=== PATIENT | female | born 1955 | race Caucasian/White ===

== ENCOUNTER 2017-06-24 03:24 | Inpatient (IN) | payer BC, OTHER ==
[2017-06-24] MEDS ORDERED: NORMAL SALINE 1000 ML 1,000 ML IV ONE ×3 (03:26→06:27)
[2017-06-24 04:02] LABS: VENOUS BLOOD BASE EXCESS -4.1 mmol/L; VENOUS BLOOD HCO3 21.2 mmol/L (20-32); VENOUS BLOOD PCO2 39.8 mmHg (35-63); VENOUS BLOOD PH 7.35 (7.30-7.42)
[2017-06-24 04:05] LABS: ABSOLUTE BASOPHILS # (AUTO) 0.1 10^3/uL (0.0-0.2); ABSOLUTE EOSINOPHILS # (AUTO) 0.2 10^3/uL (0.0-0.6); ABSOLUTE LYMPHOCYTES (AUTO) 2.2 10^3/uL (0.5-4.7); ABSOLUTE MONOCYTES (AUTO) 0.4 10^3/uL (0.1-1.4); BASOPHILS % (AUTO) 1.3 % (0-2); EOSINOPHILS % (AUTO) 2.6 % (0-6); HEMATOCRIT 38.8 % (36.0-47.0); HEMOGLOBIN 12.8 g/dL (12.0-15.5); LYMPHOCYTES % (AUTO) 31.5 % (13-45); MEAN CORPUSCULAR HEMOGLOBIN 30.3 pg (27.0-33.4); MEAN CORPUSCULAR HGB CONC 32.9 g/dL (32.0-36.0); MEAN CORPUSCULAR VOLUME 92 fl (80-97); MONOCYTES % (AUTO) 6.2 % (3-13); PLATELET COUNT 209 10^3/uL (150-450); RED BLOOD COUNT 4.22 10^6/uL (3.72-5.28); RED CELL DISTRIBUTION WIDTH 14.5 % (11.5-14.0); SEGMENTED NEUTROPHILS % (AUTO) 58.4 % (42-78); TOTAL CELLS COUNTED % (AUTO) 100 %; WHITE BLOOD COUNT 6.9 10^3/uL (4.0-10.5)
[2017-06-24 04:14] LABS: ALANINE AMINOTRANSFERASE 21 U/L (9-52); ALBUMIN 3.9 g/dL (3.5-5.0); ALKALINE PHOSPHATASE 96 U/L (38-126); ANION GAP 12 (5-19); ASPARTATE AMINO TRANSFERASE 34 U/L (14-36); BILIRUBIN,DIRECT 0.2 mg/dL (0.0-0.4); BILIRUBIN,TOTAL 0.5 mg/dL (0.2-1.3); BLOOD UREA NITROGEN 20 mg/dL (7-20); CALCIUM 9.7 mg/dL (8.4-10.2); CARBON DIOXIDE 25 mmol/L (22-30); CHLORIDE 99 mmol/L (98-107); LIPASE 379.3 U/L (23-300); POTASSIUM 4.8 mmol/L (3.6-5.0); SODIUM 135.8 mmol/L (137-145); TOTAL PROTEIN 7.5 g/dL (6.3-8.2)
[2017-06-24 04:22] LABS: GLUCOSE 564 mg/dL (75-110)
[2017-06-24 04:44] LABS: APPEARANCE,URINE CLOUDY; BILIRUBIN,URINE NEGATIVE (NEGATIVE); COLOR,URINE YELLOW; GLUCOSE, URINE >=500 mg/dL (NEGATIVE); KETONES,URINE TRACE mg/dL (NEGATIVE); LEUKOCYTE ESTERASE,URINE MODERATE (NEGATIVE); NITRITE,URINE NEGATIVE (NEGATIVE); PROTEIN,URINE NEGATIVE (NEGATIVE); URINE SPECIFIC GRAVITY 1.035; UROBILINOGEN,URINE NEGATIVE mg/dL (<2.0)
[2017-06-24] MEDS ORDERED: INSULIN REG, HUMAN 100 UNIT/ML 3 ML VIAL (PYX) SUBCUT ONE (04:54)
[2017-06-24] MEDS ORDERED: CEFTRIAXONE 1 GM/D5W RTU 1 GM/50 ML RTUPB IV ONE (04:54)
[2017-06-24] MEDS ORDERED: CEFTRIAXONE INJ 1000 MG VIAL ONE (05:09)
[2017-06-24] MEDS ORDERED: HUM INSULIN NPH/REG INSULIN HM 100 UNIT/1 ML 3 ML SUBCUT ONE (06:21)
--- NOTE | 2017-06-24 06:33 | ER Document Report ---
ED General - General Chief Complaint: High Blood Sugar Stated Complaint: BLOOD SUGAR ISSUE Time Seen by Provider: 06/24/17 03:38 TRAVEL OUTSIDE OF THE [place] IN LAST 30 DAYS: No - HPI Patient complains to provider of: Elevated blood sugars altered mental state Notes: Rule outI told able to get up and stand her up more insulin he does patient coming in for elevated blood sugar Tylenol status found by family not to be slightly confused. Upon myEvaluation patient moving all 4 extremities was to be sleepy at this time. Patient states she has been out of her insulin for the last 2 days. Apparently patient is on a combination of insulin family thinks that the 7030 however did not have much she takes. Patient denies any trauma denies any pain at this time. Denies fevers chills nausea vomiting diarrhea. Patient moving all 4 extremities. - Related Data Allergies/Adverse Reactions: amoxicillin Allergy (Verified 06/24/17 05:21) Past Medical History - Social History Smoking Status: Never Smoker Family History: Reviewed & Not Pertinent Patient has suicidal ideation: No Patient has homicidal ideation: No Endocrine Medical History: Reports: Hx Diabetes Mellitus Type 2 Renal/ Medical History: Denies: Hx Peritoneal Dialysis Review of Systems - Review of Systems Constitutional: Other - Slight confusion EENT: No symptoms reported Cardiovascular: No symptoms reported Respiratory: No symptoms reported Gastrointestinal: No symptoms reported Genitourinary: No symptoms reported Female Genitourinary: No symptoms reported Musculoskeletal: No symptoms reported Skin: No symptoms reported Hematologic/Lymphatic: No symptoms reported Neurological/Psychological: Other - Elevated blood sugars -: Yes All other systems reviewed and negative Physical Exam - Vital signs Vitals: Resp Pulse Ox 21 H 95 06/24/17 03:42 06/24/17 03:42 Interpretation: Normal - General General appearance: Appears well, Alert - HEENT Head: Normocephalic, Atraumatic Eyes: Normal Pupils: PERRL - Respiratory Respiratory status: No respiratory distress Chest status: Nontender Breath sounds: Normal Chest palpation: Normal - Cardiovascular Rhythm: Regular Heart sounds: Normal auscultation Murmur: No - Abdominal Inspection: Normal Distension: No distension Bowel sounds: Normal Tenderness: Nontender Organomegaly: No organomegaly - Back Back: Normal, Nontender - Extremities General upper extremity: Normal inspection, Nontender, Normal color, Normal ROM , Normal temperature General lower extremity: Normal inspection, Nontender, Normal color, Normal ROM , Normal temperature, Normal weight bearing. No: Feng's sign - Neurological Neuro grossly intact: Yes Cognition: Normal Orientation: No: AAOx4 - Patient is slightly confused with names. Patient otherwise able to answer all questions appropriately. Linda Coma Scale Eye Opening: Spontaneous Mary Esther Coma Scale Verbal: Oriented Mary Esther Coma Scale Motor: Extensor Response Linda Coma Scale Total: 11 Speech: Normal Motor strength normal: LUE, RUE, LLE, RLE Sensory: Normal - Psychological Associated symptoms: Normal affect, Normal mood - Skin Skin Temperature: Warm Skin Moisture: Dry Skin Color: Normal Course - Re-evaluation Re-evalutation: 06/24/17 06:32 Initial evaluation patient slightly confused concerned about possible DKA and laboratory studies only showed elevated blood sugar no signs of acidosis. Urinalysis is also seen. Initially thought process will be to discharge patient home if the patient's blood sugars improved after hydration and insulin also give the patient a dose of Rocephin. Patient otherwise appearing to improve however still slightly confused upon last evaluation. Because patient still is not baseline according family did discuss with hospitalist states he will pass along to the day team otherwise recommends admission to telemetry at this time. Patient is moving all 4 extremities I do not suspect any intracranial pathology at this time but we will obtain a CAT scan. - Vital Signs Vital signs: Temp Pulse Resp BP Pulse Ox 98.9 F 88 18 116/73 98 06/27/17 03:11 06/27/17 03:11 06/27/17 03:11 06/27/17 03:11 06/27/17 03:11 - Laboratory Result Diagrams: 06/26/17 04:24 06/26/17 04:24 Laboratory results interpreted by me: 06/24/17 06/24/17 06/24/17 03:38 03:40 03:40 RDW 14.5 H Sodium 135.8 L Glucose 564 H* POC Glucose > 550 H* Lipase 379.3 H Urine Glucose (UA) Urine Ketones Urine Blood Ur Leukocyte Esterase 06/24/17 06/24/17 04:23 06:11 RDW Sodium Glucose POC Glucose 394 H Lipase Urine Glucose (UA) >=500 H Urine Ketones TRACE H Urine Blood SMALL H Ur Leukocyte Esterase MODERATE H Discharge - Discharge Clinical Impression: Hyperglycemia UTI (urinary tract infection) Qualifiers: Urinary tract infection type: site unspecified Hematuria presence: without hematuria Qualified Code(s): N39.0 - Urinary tract infection, site not specified Altered mental state Qualifiers: Altered mental status type: unspecified Qualified Code(s): R41.82 - Altered mental status, unspecified Condition: Good Disposition: ADMITTED INPATIENT Admitting Provider: Hospitalist Unit Admitted: Telemetry
[2017-06-24 07:20] LABS: URINE AMPHETAMINES SCREEN NEGATIVE; URINE BARBITURATES SCREEN NEGATIVE; URINE BENZODIAZEPINES SCREEN NEGATIVE; URINE COCAINE SCREEN NEGATIVE; URINE MARIJUANA (THC) SCREEN NEGATIVE; URINE METHADONE SCREEN NEGATIVE; URINE PHENCYCLIDINE SCREEN NEGATIVE
--- NOTE | 2017-06-24 07:32 | RADIOLOGY REPORT (SQ) ---
EXAM DESCRIPTION: CT HEAD WITHOUT CLINICAL HISTORY: 61 years Female, ams COMPARISON: None. TECHNIQUE: No contrast. This exam was performed according to our departmental dose-optimization program, which includes automated exposure control, adjustment of the mA and/or kV according to patient size and/or use of iterative reconstruction technique. FINDINGS: No hemorrhage or infarct. No mass, mass effect, or midline shift. Atherosclerosis. Mild cerebral volume loss. Brain and extra-axial structures appear otherwise intact. IMPRESSION: No acute findings.
[2017-06-24] MEDS ORDERED: BENZONATATE 100 MG CAPSULE PO PRN (08:59)
[2017-06-24] MEDS ORDERED: SODIUM CHLORIDE NASAL SPRAY 44 ML NASL PRN (08:59)
[2017-06-24] MEDS ORDERED: DEXTROSE 40% GEL 15 GM TUBE PO PRN ×2 (09:01)
[2017-06-24] MEDS ORDERED: GLUCAGON,HUMAN RECOMB 1 MG INJ IM PRN (09:01)
[2017-06-24] MEDS ORDERED: DEXTROSE 50%-WATER 25 GM/50 ML DISP.SYRIN IV PRN ×2 (09:01)
[2017-06-24] MEDS ORDERED: ONDANSETRON HCL INJ/PF 4 MG/2 ML SDV IV PRN (09:05)
--- NOTE | 2017-06-24 09:30 | PDOC H&P ---
History of Present Illness Admission Date/PCP: 06/24/17 06:48 ODALYS SIMMONS MD Patient complains of: Frequent urination, fatigue, confusion History of Present Illness: ASHLI VIVAR is a 61 year old female with PMH of UTIs, DM. Describes receiving an antibiotic, possibly Ciprofloxacin from her PCP for UTI 2-3 weeks ago. She describes improving somewhat in her urine frequency and fatigue, but then worsening over the last several days. She describes progressive fatigue. Daughter at the bedside describes increased confused behavior at home. UA in ED shows likely UTI. Urine culture pending. She has received one dose of Rocephin at present. Will continue Rocephin and adjust based on culture results. She has stable, normal vitals. Describes mild SOB, denies nausea, vomiting, and chest pain. Complains about fatigue and sleeping all day. Describes feeling a "hot sensation" at home. Past Medical History Endocrine Medical History: Reports: Diabetes Mellitus Type 2 Renal/ History Note: recent hx of UTI Past Surgical History Past Surgical History: Reports: Adenoidectomy, Tonsillectomy, Other - left breast lumpectomy, 2 vagninal births, spurs removed from 2 right toes Social History Information Source: Patient, Relative Lives with: Family - lives with daughter, son, and Smoking Status: Former Smoker - smoked for 3 years in her youth Frequency of Alcohol Use: Occasional - unidentified amount, but described as rare to occassional Hx Recreational Drug Use: No - Advance Directive Resuscitation Status: Full Code Family History Family History: Malignancy - described on father's side of the family Parental Family History Reviewed: Yes - malignancy on father's side of family Children Family History Reviewed: No Sibling(s) Family History Reviewed.: Yes Medication/Allergy Home Medications: Aspirin [Aspirin 81 mg Chewable Tablet] 81 mg PO DAILY 06/24/17 Benzonatate [Tessalon Perle 100 mg Capsule] 100 mg PO BIDP PRN 06/24/17 Divalproex Sodium [Depakote Er 250 Mg Tablet] 250 mg PO QHS 06/24/17 Guaifenesin/Pseudoephedrne HCl [Mucinex D ER 600-60 mg Tablet] 1 each PO Q12HP PRN 06/24/17 Levothyroxine Sodium [Synthroid 0.112 mg Tablet] 112 mcg PO Q6AM 06/24/17 NPH, Human Insulin Isophane [Novolin N (NPH) Insulin 100 unit/mL] 35 unit SUBCUT Q12 06/24/17 Oxybutynin Chloride [Ditropan 5 Mg Tablet] 5 mg PO DAILY 06/24/17 Sodium Chloride [[place] Nasal [place] 44 ml Bottle] 2 spray NASL BIDP PRN 06/24/17 Tramadol HCl [Ultram 50 mg Tablet] 50 mg PO BIDP PRN 06/24/17 Zolpidem Tartrate [Ambien 5 mg Tablet] 5 mg PO HSP PRN 06/24/17 Allergies/Adverse Reactions: amoxicillin Allergy (Verified 06/24/17 05:21) Review of Systems Constitutional: PRESENT: fever(s), weakness. ABSENT: headache(s) Eyes: PRESENT: as per HPI. ABSENT: visual disturbances Ears: PRESENT: as per HPI. ABSENT: hearing changes Nose, Mouth, and Throat: PRESENT: as per HPI. ABSENT: mouth pain Cardiovascular: PRESENT: as per HPI. ABSENT: chest pain, edema, orthropnea Respiratory: PRESENT: dyspnea Gastrointestinal: ABSENT: diarrhea, heartburn, nausea, vomiting Genitourinary: PRESENT: other - frequent urination. ABSENT: dysuria Musculoskeletal: ABSENT: deformity, joint swelling Integumentary: ABSENT: lesions, pruritus Neurological: ABSENT: focal weakness, syncope Psychiatric: ABSENT: anxiety, hallucinations Endocrine: PRESENT: as per HPI, polyuria Physical Exam Vital Signs: Temp Pulse Resp BP Pulse Ox 97.8 F 17 132/76 H 97 06/24/17 08:01 06/24/17 08:16 06/24/17 08:16 06/24/17 08:16 Intake & Output 06/23/17 06/24/17 06/25/17 06:59 06:59 06:59 Weight 81.647 kg General appearance: PRESENT: cooperative, disheveled. ABSENT: no acute distress , mild distress Head exam: PRESENT: atraumatic, normocephalic Eye exam: PRESENT: EOMI, PERRLA Ear exam: PRESENT: normal external ear exam. ABSENT: bleeding Mouth exam: PRESENT: moist, neck supple Neck exam: PRESENT: full ROM. ABSENT: JVD Respiratory exam: ABSENT: accessory muscle use, rales, rhonchi, wheezes Cardiovascular exam: PRESENT: RRR, +S1, +S2 Pulses: PRESENT: normal radial pulses, +2 pedal pulses bilateral Vascular exam: PRESENT: normal capillary refill. ABSENT: pallor GI/Abdominal exam: ABSENT: ascites, distended, firm, guarding, rigid Extremities exam: ABSENT: calf tenderness, joint swelling Musculoskeletal exam: PRESENT: ambulatory, full ROM Neurological exam: PRESENT: altered, oriented to person, oriented to place, oriented to situation, CN II-XII grossly intact Psychiatric exam: ABSENT: agitated, anxious Focused psych exam: ABSENT: paranoid, pressured speech Skin exam: ABSENT: abrasion, cyanosis Results Impressions: Head CT 06/24/17 06:29 IMPRESSION: No acute findings. Assessment & Plan - Diagnosis (1) UTI (urinary tract infection) Qualifiers: Urinary tract infection type: site unspecified Hematuria presence: without hematuria Qualified Code(s): N39.0 - Urinary tract infection, site not specified Is this a current diagnosis for this admission?: Yes Plan: Urine culture pending, blood culture pending. Will continue Rocephin for UTI coverage at present. Good renal function. Will continue IVF support. Monitor on a medical floor, stable vitals. continue oxybutin (2) Altered mental state Qualifiers: Altered mental status type: unspecified Qualified Code(s): R41.82 - Altered mental status, unspecified Is this a current diagnosis for this admission?: Yes Plan: treating UTI with Rocephin, IVF support supportive care, and monitoring on a medical floor (3) Hyperglycemia Is this a current diagnosis for this admission?: Yes Plan: Restarting NPH from home giving SSI ACHS. Blood sugar is uncontroled, in setting of active infection. patient states that she has been taking her insulin at home Checking A1C.
[2017-06-24] MEDS ORDERED: LEVOTHYROXINE SODIUM 0.112 MG TABLET PO ONE (10:00)
[2017-06-24] MEDS ORDERED: (PENDING PHARMACY ID) (Nph, Human Insulin Isophane [Novolin N (Nph) Insulin 100 Unit/Ml] 3 SUBCUT SCH (10:00)
[2017-06-24] MEDS: NORMAL SALINE 1000 ML 1,000 ML IV PRN ×2 (14:14→22:50)
[2017-06-24] MEDS: INSULIN NPH (ISOPHANE), HUMAN 100 UNIT/ML 3 ML SUBCUT SCH ×2 (14:14→22:46)
[2017-06-24] MEDS: ASPIRIN 81 MG TABLET, CHEWABLE PO SCH (14:15)
[2017-06-24] MEDS: OXYBUTYNIN CHLORIDE 5 MG TABLET PO SCH (14:15)
[2017-06-24] MEDS: INSULIN LISPRO 100 UNIT/ML 3 ML VIAL SUBCUT PRN (15:37)
[2017-06-24] MEDS: CEFTRIAXONE SODIUM 1,500 MG in NORMAL SALINE 100 ML IV SCH (17:54)
[2017-06-24] MEDS: DIVALPROEX SODIUM 250 MG TAB.SR.24H PO SCH (22:46)
[2017-06-25] MEDS: TRAMADOL HCL 50 MG TABLET PO PRN
[2017-06-25 05:14] LABS: HEMATOCRIT 35.9 % (36.0-47.0); HEMOGLOBIN 12.1 g/dL (12.0-15.5); MEAN CORPUSCULAR HEMOGLOBIN 30.2 pg (27.0-33.4); MEAN CORPUSCULAR HGB CONC 33.7 g/dL (32.0-36.0); MEAN CORPUSCULAR VOLUME 90 fl (80-97); PLATELET COUNT 208 10^3/uL (150-450); RED CELL DISTRIBUTION WIDTH 14.3 % (11.5-14.0); WHITE BLOOD COUNT 6.8 10^3/uL (4.0-10.5)
[2017-06-25] MEDS: LEVOTHYROXINE SODIUM 0.112 MG TABLET PO SCH (05:25)
[2017-06-25] MEDS: CEFTRIAXONE SODIUM 1,500 MG in NORMAL SALINE 100 ML IV SCH ×2 (05:25→18:38)
[2017-06-25 05:42] LABS: ALBUMIN 3.2 g/dL (3.5-5.0); ANION GAP 9 (5-19); BLOOD UREA NITROGEN 11 mg/dL (7-20); CALCIUM 8.8 mg/dL (8.4-10.2); CARBON DIOXIDE 21 mmol/L (22-30); CHLORIDE 112 mmol/L (98-107); GLUCOSE 67 mg/dL (75-110); PHOSPHORUS 3.3 mg/dL (2.5-4.5); POTASSIUM 3.2 mmol/L (3.6-5.0)
[2017-06-25] MEDS: MORPHINE SULFATE 10 MG/ML INJ IV PRN ×3 (08:41→18:35)
[2017-06-25] MEDS: NORMAL SALINE 1000 ML 1,000 ML IV PRN (08:41)
[2017-06-25] MEDS: ASPIRIN 81 MG TABLET, CHEWABLE PO SCH (09:47)
[2017-06-25] MEDS: OXYBUTYNIN CHLORIDE 5 MG TABLET PO SCH (09:47)
[2017-06-25] MEDS: INSULIN NPH (ISOPHANE), HUMAN 100 UNIT/ML 3 ML SUBCUT SCH ×2 (09:48→18:33)
--- NOTE | 2017-06-25 19:51 | RADIOLOGY REPORT (SQ) ---
EXAM DESCRIPTION: U/S RETROPERITON (RENAL/AORTA) COMPLETED DATE/TIME: 06/25/2017 7:34 pm REASON FOR STUDY: evaluate for kidney stones COMPARISON: 10/05/2012 TECHNIQUE: Dynamic and static grayscale images acquired of the kidneys and bladder and recorded on P ACS. Additional selected color Doppler and spectral images recorded. LIMITATIONS: None. FINDINGS: RIGHT KIDNEY: Normal size, 11.9 cm. Normal echogenicity. No solid or suspicious masses. No hydronephrosis. No calcifications. LEFT KIDNEY: Normal size, 11.4 cm. Normal echogenicity. No solid or suspicious masses. No hydronephr osis. No calcifications. BLADDER: No masses. OTHER FINDINGS: No other significant finding. IMPRESSION: NORMAL RENAL AND BLADDER ULTRASOUND. TECHNICAL DOCUMENTATION: JOB ID: [id number] [employer]- All Rights Reserved Reading location - IP/workstation name: [email or web address]
--- NOTE | 2017-06-25 20:03 | PDOC PROGRESS REPORT ---
Subjective Progress Note for:: 06/25/17 Subjective:: Patient appears paranoid during exam today. She references being kept in a psychitric bailey this AM. Appears concerned. Family at the bedside describes history of confusion, forgetfullness. This is worsened by infections. Continue her antibiotics. Reason For Visit: UTI WITH ENCEPHALOPATHY Physical Exam Vital Signs: Temp Pulse Resp BP Pulse Ox 98.1 F 89 15 111/73 97 06/25/17 15:31 06/25/17 15:31 06/25/17 15:31 06/25/17 15:31 06/25/17 15:31 Intake & Output 06/24/17 06/25/17 06/26/17 06:59 06:59 06:59 Intake Total 3634 1237 Output Total 700 650 Balance 2934 587 Weight 82.2 kg General appearance: PRESENT: no acute distress, cooperative Head exam: PRESENT: atraumatic, normocephalic Eye exam: PRESENT: EOMI, PERRLA Ear exam: PRESENT: normal external ear exam. ABSENT: bleeding Mouth exam: PRESENT: moist, neck supple Neck exam: ABSENT: full ROM, JVD Respiratory exam: ABSENT: rales, rhonchi, wheezes Cardiovascular exam: PRESENT: RRR, +S1, +S2 Pulses: PRESENT: normal radial pulses Vascular exam: PRESENT: normal capillary refill. ABSENT: pallor GI/Abdominal exam: ABSENT: ascites, firm, mass Extremities exam: ABSENT: calf tenderness, joint swelling Musculoskeletal exam: PRESENT: ambulatory, full ROM Neurological exam: PRESENT: awake, oriented to person, oriented to place, CN II- XII grossly intact Psychiatric exam: PRESENT: agitated, anxious. ABSENT: manic Focused psych exam: PRESENT: delusional, paranoid Skin exam: ABSENT: abrasion, cyanosis Results Laboratory Results: 06/25/17 04:07 06/25/17 04:07 06/25/17 06/25/17 04:07 04:07 WBC 6.8 RBC 4.00 Hgb 12.1 Hct 35.9 L MCV 90 MCH 30.2 MCHC 33.7 RDW 14.3 H Plt Count 208 Sodium 142.0 Potassium 3.2 L Chloride 112 H Carbon Dioxide 21 L Anion Gap 9 BUN 11 Creatinine 0.52 Est GFR ( Amer) > 60 Est GFR (Non-Af Amer) > 60 Glucose 67 L Calcium 8.8 Phosphorus 3.3 Albumin 3.2 L Impressions: Head CT 06/24/17 06:29 IMPRESSION: No acute findings. Assessment & Plan - Diagnosis (1) UTI (urinary tract infection) Qualifiers: Urinary tract infection type: site unspecified Hematuria presence: without hematuria Qualified Code(s): N39.0 - Urinary tract infection, site not specified Is this a current diagnosis for this admission?: Yes (2) Altered mental state Qualifiers: Altered mental status type: unspecified Qualified Code(s): R41.82 - Altered mental status, unspecified Is this a current diagnosis for this admission?: Yes (3) Hyperglycemia Is this a current diagnosis for this admission?: Yes - Time Time Spent with patient: 15-24 minutes - Inpatient Certification Based on my medical assessment, after consideration of the patient's comorbidities, presenting symptoms, or acuity I expect that the services needed warrant INPATIENT care.: Yes Medical Necessity: Need for IV Antibiotics, Risk of Complication if Not Cared For in Hospital - Plan Summary Plan Summary: (1) UTI (urinary tract infection) Qualifiers: Urinary tract infection type: site unspecified Hematuria presence: without hematuria Qualified Code(s): N39.0 - Urinary tract infection, site not specified Is this a current diagnosis for this admission?: Yes Plan: Urine culture growing gram negative blood culture pending. Will continue Rocephin for UTI coverage at present. No significant elevation in WBC. Encephalopathy continues Good renal function. continue oxybutin (2) Acute Encephalopathy Qualifiers: Altered mental status type: unspecified Qualified Code(s): R41.82 - Altered mental status, unspecified Is this a current diagnosis for this admission?: Yes Plan: treating UTI with Rocephin, IVF support supportive care, and monitoring on a medical floor component of psychiatric disorder suspected. patient continued on her Depakote, check depakote level. (3) Hyperglycemia Is this a current diagnosis for this admission?: Yes Plan: due to lower BS this AM, decrease NPH to 20u BID continue SSI ACHS.
[2017-06-25] MEDS: DIVALPROEX SODIUM 250 MG TAB.SR.24H PO SCH (21:15)
[2017-06-26] MEDS: TRAMADOL HCL 50 MG TABLET PO PRN ×2 (01:53→10:09)
[2017-06-26] MEDS: LEVOTHYROXINE SODIUM 0.112 MG TABLET PO SCH (05:15)
[2017-06-26] MEDS: CEFTRIAXONE SODIUM 1,500 MG in NORMAL SALINE 100 ML IV SCH ×2 (05:15→17:40)
[2017-06-26 05:38] LABS: HEMATOCRIT 35.3 % (36.0-47.0); MEAN CORPUSCULAR HEMOGLOBIN 30.3 pg (27.0-33.4); MEAN CORPUSCULAR HGB CONC 34.1 g/dL (32.0-36.0); MEAN CORPUSCULAR VOLUME 89 fl (80-97); PLATELET COUNT 150 10^3/uL (150-450); RED BLOOD COUNT 3.97 10^6/uL (3.72-5.28); RED CELL DISTRIBUTION WIDTH 14.4 % (11.5-14.0); WHITE BLOOD COUNT 4.5 10^3/uL (4.0-10.5)
[2017-06-26 06:06] LABS: ALBUMIN 3.3 g/dL (3.5-5.0); ANION GAP 11 (5-19); BLOOD UREA NITROGEN 7 mg/dL (7-20); CALCIUM 9.1 mg/dL (8.4-10.2); CARBON DIOXIDE 21 mmol/L (22-30); CHLORIDE 109 mmol/L (98-107); GLUCOSE 99 mg/dL (75-110); PHOSPHORUS 3.9 mg/dL (2.5-4.5); POTASSIUM 3.8 mmol/L (3.6-5.0); SODIUM 140.8 mmol/L (137-145)
[2017-06-26] MEDS: INSULIN NPH (ISOPHANE), HUMAN 100 UNIT/ML 3 ML SUBCUT SCH (09:37)
[2017-06-26] MEDS: ASPIRIN 81 MG TABLET, CHEWABLE PO SCH (09:37)
[2017-06-26] MEDS: OXYBUTYNIN CHLORIDE 5 MG TABLET PO SCH (09:37)
[2017-06-26] MEDS: MORPHINE SULFATE 10 MG/ML INJ IV PRN ×2 (11:10→14:59)
[2017-06-26] MEDS: INSULIN LISPRO 100 UNIT/ML 3 ML VIAL SUBCUT PRN ×3 (12:34→21:23)
[2017-06-26] MEDS ORDERED: HUM INSULIN NPH/REG INSULIN HM 100 UNIT/1 ML 3 ML SUBCUT SCH (16:00)
[2017-06-26] MEDS ORDERED: FLUOXETINE HCL 20 MG CAPSULE PO SCH (16:00)
--- NOTE | 2017-06-26 18:52 | PDOC PROGRESS REPORT ---
Subjective Progress Note for:: 06/26/17 Subjective:: Attempted to discharge patient today but blood sugar remained too high even after adjusting insulin therapy. Patient was started on 7030 25 units twice daily, along with sliding scale insulin. She wanted an affordable insulin option. Patient also displayed continued depression and will be started on Prozac. Patient appears to be improving from her urinary tract infection. Will complete a course of Cefdinir in OP. Continue to adjust patient's insulin until blood sugars controlled and possible discharge tomorrow. Reason For Visit: UTI WITH ENCEPHALOPATHY Physical Exam Vital Signs: Temp Pulse Resp BP Pulse Ox 97.9 F 96 18 123/66 96 06/26/17 15:09 06/26/17 15:09 06/26/17 15:09 06/26/17 15:09 06/26/17 15:09 Intake & Output 06/25/17 06/26/17 06/27/17 06:59 06:59 06:59 Intake Total 3634 2081 500 Output Total 700 650 Balance 2934 1431 500 Weight 82.2 kg General appearance: PRESENT: no acute distress, cooperative Head exam: PRESENT: atraumatic, normocephalic Eye exam: PRESENT: EOMI, PERRLA Ear exam: PRESENT: normal external ear exam. ABSENT: bleeding Mouth exam: PRESENT: moist, neck supple Neck exam: PRESENT: full ROM. ABSENT: JVD, tenderness Respiratory exam: ABSENT: accessory muscle use, rales, rhonchi, wheezes Cardiovascular exam: PRESENT: RRR, +S1, +S2 Pulses: PRESENT: normal radial pulses, normal dorsalis pedis pul Vascular exam: PRESENT: normal capillary refill. ABSENT: pallor GI/Abdominal exam: PRESENT: soft. ABSENT: ascites, firm, mass, rigid Extremities exam: ABSENT: calf tenderness, joint swelling Musculoskeletal exam: PRESENT: full ROM. ABSENT: ambulatory Neurological exam: PRESENT: alert, oriented to person, oriented to place, oriented to time, oriented to situation, CN II-XII grossly intact Psychiatric exam: PRESENT: depressed. ABSENT: agitated Focused psych exam: ABSENT: paranoid, pressured speech Skin exam: ABSENT: cyanosis, mottled Results Laboratory Results: 06/26/17 04:24 06/26/17 04:24 06/26/17 06/26/17 04:24 04:24 WBC 4.5 RBC 3.97 Hgb 12.0 Hct 35.3 L MCV 89 MCH 30.3 MCHC 34.1 RDW 14.4 H Plt Count 150 Sodium 140.8 Potassium 3.8 Chloride 109 H Carbon Dioxide 21 L Anion Gap 11 BUN 7 Creatinine 0.50 L Est GFR ( Amer) > 60 Est GFR (Non-Af Amer) > 60 Glucose 99 Calcium 9.1 Phosphorus 3.9 Albumin 3.3 L Impressions: Head CT 06/24/17 06:29 IMPRESSION: No acute findings. Renal Ultrasound 06/25/17 00:00 IMPRESSION: NORMAL RENAL AND BLADDER ULTRASOUND. Assessment & Plan - Diagnosis (1) UTI (urinary tract infection) Qualifiers: Urinary tract infection type: site unspecified Hematuria presence: without hematuria Qualified Code(s): N39.0 - Urinary tract infection, site not specified Is this a current diagnosis for this admission?: Yes Plan: Continue ceftriaxone at present, will change to Omnicef at discharge. She recovering well. (2) Altered mental state Qualifiers: Altered mental status type: unspecified Qualified Code(s): R41.82 - Altered mental status, unspecified Is this a current diagnosis for this admission?: Yes Plan: Mental state appears to be at baseline. Does display some emotional lability but is likely secondary to an underlying personality disorder or psychiatric diagnosis. We will start Prozac on patient. Continue her valproic acid. (3) Hyperglycemia Is this a current diagnosis for this admission?: Yes Plan: Unfortunately continued hyperglycemia today with insulin changes. Changed patient to 70/30 insulin. Continue sliding scale insulin for additional coverage. Patient did well with her dinner tonight. We will continue to titrate up her insulin dose and likely discharge her tomorrow.
[2017-06-26] MEDS: DIVALPROEX SODIUM 250 MG TAB.SR.24H PO SCH (21:23)
[2017-06-27] MEDS: TRAMADOL HCL 50 MG TABLET PO PRN (02:06)
[2017-06-27] MEDS: CEFTRIAXONE SODIUM 1,500 MG in NORMAL SALINE 100 ML IV SCH (06:27)
[2017-06-27] MEDS: LEVOTHYROXINE SODIUM 0.112 MG TABLET PO SCH (06:27)
[2017-06-27] MEDS ORDERED: HUM INSULIN NPH/REG INSULIN HM 100 UNIT/1 ML 3 ML SUBCUT SCH ×2 (08:00)
[2017-06-27] MEDS: INSULIN LISPRO 100 UNIT/ML 3 ML VIAL SUBCUT PRN (08:05)
[2017-06-27] MEDS ORDERED: CEFTRIAXONE INJ 1000 MG VIAL IM ONE (08:10)
[2017-06-27] MEDS: OXYBUTYNIN CHLORIDE 5 MG TABLET PO SCH (10:20)
[2017-06-27] MEDS: ASPIRIN 81 MG TABLET, CHEWABLE PO SCH (10:20)
[2017-06-27] MEDS ORDERED: INSULIN LISPRO 100 UNIT/ML 3 ML VIAL SUBCUT ONE (12:30)
[2017-06-27 12:52] VITALS: BP 120/67
--- NOTE | 2017-06-28 07:05 | PDOC DISCHARGE SUMMARY ---
General - Admit/Disc Date/PCP Admission Date/Primary Care Provider: 06/24/17 06:48 ODALYS SIMMONS MD Discharge Date: 06/27/17 - Discharge Diagnosis (1) UTI (urinary tract infection) Is this a current diagnosis for this admission?: Yes (2) Altered mental state Is this a current diagnosis for this admission?: Yes (3) Hyperglycemia Is this a current diagnosis for this admission?: Yes (4) Depression Is this a current diagnosis for this admission?: Yes - Additional Information Resuscitation Status: Full Code Discharge Diet: As Tolerated Discharge Activity: Activity As Tolerated, Balance Activity w/Rest Prescriptions: Cefdinir [Omnicef 300 mg Capsule] 1 cap PO BID 5 Days #30 capsule Fluoxetine HCl [Prozac 20 mg Capsule] 20 mg PO DAILY #30 capsule Hum Insulin NPH/Reg Insulin Hm [Insulin 70-30 (NPH/Reg) 100 unit/mL] 32 unit SUBCUT BIDACBS #1 vial Home Medications: Aspirin [Aspirin 81 mg Chewable Tablet] 81 mg PO DAILY 06/24/17 Benzonatate [Tessalon Perle 100 mg Capsule] 100 mg PO BIDP PRN 06/24/17 Divalproex Sodium [Depakote ER 250 mg Tablet] 250 mg PO QHS 06/24/17 Levothyroxine Sodium [Synthroid 0.112 mg Tablet] 112 mcg PO Q6AM 06/24/17 Oxybutynin Chloride [Ditropan 5 mg Tablet] 5 mg PO DAILY 06/24/17 Sodium Chloride [[place] Nasal [place] 44 ml Bottle] 2 spray NASL BIDP PRN 06/24/17 Tramadol HCl [Ultram 50 mg Tablet] 50 mg PO BIDP PRN 06/24/17 Cefdinir [Omnicef 300 mg Capsule] 1 cap PO BID 5 Days #30 capsule 06/26/17 Fluoxetine HCl [Prozac 20 mg Capsule] 20 mg PO DAILY #30 capsule 06/26/17 Hum Insulin NPH/Reg Insulin Hm [Insulin 70-30 (NPH/Reg) 100 unit/mL] 32 unit SUBCUT BIDACBS #1 vial 06/27/17 History of Present Illness History of Present Illness: ASHLI VIVAR is a 61 year old female with PMH of UTIs, DM. Describes receiving an antibiotic, possibly Ciprofloxacin from her PCP for UTI 2-3 weeks ago. She describes improving somewhat in her urine frequency and fatigue, but then worsening over the last several days. She describes progressive fatigue. Daughter at the bedside describes increased confused behavior at home. UA in ED shows likely UTI. Urine culture pending. She has received one dose of Rocephin at present. Will continue Rocephin and adjust based on culture results. She has stable, normal vitals. Describes mild SOB, denies nausea, vomiting, and chest pain. Complains about fatigue and sleeping all day. Describes feeling a "hot sensation" at home. (see full H and P for full admission details) Hospital Course Hospital Course: Patient's presentation with acute encephalopathy was attributed to her UTI. She was started on empiric Rocephin and improved significantly. Urine culture grew E. Coli sensitive to Rocephine. Her mentation was back to baseline prior to discharge. She was held for an additional night as her insulin was changed and titrated. She was placed on 70/30 insulin with ACHS sliding scale support. Her Rocephin was transitioned to Cefdinir at discharge. She was noticed to be tearful and depressed on exam, and was started on Prozac therapy. Patient has a hx of memory problems and states that she has f/u with a neurologist next week. She was instructed to complete her antibiotics, and attend a f/u with her PCP in one week. Patient will likely need further monitoring and titration of her insulin therapy. Physical Exam Vital Signs: Temp Pulse Resp BP Pulse Ox 98.5 F 85 18 120/67 99 06/27/17 15:08 06/27/17 15:08 06/27/17 15:08 06/27/17 15:08 06/27/17 15:08 Intake & Output 06/26/17 06/27/17 06/28/17 06:59 06:59 06:59 Intake Total 2081 1586 Output Total 650 Balance 1431 1586 Weight 82.8 kg General appearance: PRESENT: no acute distress, cooperative Head exam: PRESENT: atraumatic, normocephalic Eye exam: PRESENT: EOMI, PERRLA Ear exam: PRESENT: normal external ear exam. ABSENT: bleeding Mouth exam: PRESENT: moist, neck supple Neck exam: PRESENT: full ROM. ABSENT: JVD, tenderness Respiratory exam: ABSENT: accessory muscle use, rales, rhonchi, wheezes Cardiovascular exam: PRESENT: RRR, +S1, +S2 Pulses: PRESENT: normal radial pulses, normal dorsalis pedis pul Vascular exam: PRESENT: normal capillary refill. ABSENT: pallor GI/Abdominal exam: PRESENT: soft. ABSENT: ascites, firm, mass, rigid Extremities exam: ABSENT: calf tenderness, joint swelling Musculoskeletal exam: PRESENT: full ROM. ABSENT: ambulatory Neurological exam: PRESENT: alert, oriented to person, oriented to place, oriented to time, oriented to situation, CN II-XII grossly intact Psychiatric exam: PRESENT: depressed. ABSENT: agitated Focused psych exam: ABSENT: paranoid, pressured speech Skin exam: ABSENT: cyanosis, mottled Results Laboratory Results: 06/26/17 04:24 06/26/17 04:24 Impressions: Head CT 06/24/17 06:29 IMPRESSION: No acute findings. Renal Ultrasound 06/25/17 00:00 IMPRESSION: NORMAL RENAL AND BLADDER ULTRASOUND. Qualifiers - * PATEINT BEING DISCHARGED WITH ANY OF THE FOLLOWING DIAGNOSIS?: No Plan Discharge Plan: discharge condition: good dispo: home activity as tolerated diet: diabetic diet Complete course of antibiotics f/u with PCP in next 1 week. Time Spent: Greater than 30 Minutes
== END 2017-06-27 15:37 | disposition home or self-care (01) | DRG 689 ==
LOC: ER 03:24 → UNDOADMIN 06:48 → EH 06:48 → 3N 09:26 → 2N 06-27 06:45
PROVIDERS: ADMIT Internal Medicine; ATTEND Internal Medicine
DX: N39.0 Urinary tract infection, site not specified (principal); G93.40 Encephalopathy, unspecified; E11.65 Type 2 diabetes mellitus with hyperglycemia; B96.20 Unspecified Escherichia coli [E. coli] as the cause of diseases classified elsewhere; F32.9 Major depressive disorder, single episode, unspecified; Z79.82 Long term (current) use of aspirin; Z87.891 Personal history of nicotine dependence; Z88.0 Allergy status to penicillin; Z79.4 Long term (current) use of insulin
CPT/HCPCS: 36415; 70450; 76770; 80053; 80069; 80164; 80307; 81001; 82803; 82962; 83036; 83690; 83735; 85025; 85027; 87040; 87086; 87088; 87186; 96361; 96365; 99285; J0696; J1815; J2270; J3490; J7030

== ENCOUNTER → 2018-11-11 | Outpatient (CLI) | payer OTHER ==
[~2018-11-11] MED LIST: AMINOPHYLLINE INJ/PF 250 MG/10 ML SDV IV ONE; REGADENOSON INJ 0.4 MG/5 ML DISP.SYRIN IV ONE
--- NOTE | 2018-11-11 13:18 | DRAGON STRESS TEST REPORT ---
INTRAVENOUS LEXISCAN CARDIOLITE STRESS TEST USING SINGLE PHOTON EMMISION COMPUTERIZED TOMOGRAPHIC. DATE OF PROCEDURE: November 11, 2018, INDICATION : Chest pain CARDIAC RISK FACTORS: Diabetes, hypertension, hyperlipidemia, family history of CAD RESTING EKG: Sinus rhythm without any baseline ST-T wave changes STRESS EKG: No significant ST segment changes noted with LexiScan bolus REASON FOR TERMINATION: Protocol. PROCEDURE REPORT: Baseline heart rate 89 beats per minute with blood pressure of 113/51. Patient had no significant complaints. Patient was bolused with Lexiscan 0.4 mg intravenously followed by saline bolus. Heart rate at 2 minutes post bolus 93 with a blood pressure of 126/67. 3 minutes post bolus heart rate 91 with blood pressure of 117/50. No significant EKG changes were noted. Patient had no significant complaints during the procedure or postprocedure. CONCLUSIONS: Normal EKG and hemodynamic response to IV LexiScan. NUCLEAR DATA: At rest the patient was given 14.33 millicuries of technetium 99 sestamibi injected intravenously. As per protocol rest gated SPECT images were obtained. On day of stress test, the patient was given intravenous LexiScan at a dose of 0.4 mg in 5 mL intravenously, followed by flush with normal saline. Subsequently the stress dose of 42.7 millicuries of technetium 99 sestamibi was injected intravenously. As per protocol stress gated images were obtained. NUCLEAR INTERPRETATION: Both raw and processed data were used for interpretation. Visual, qualitative, computer-generated quantitative data was used. There was good myocardial uptake of technetium compound. Motion artifact and soft tissue attenuations were noted. Increased visceral uptake was noted. No definitive areas of transient perfusion defect noted, No definitive areas of fixed perfusion defect or scars noted except for mild decreased uptake noted in the basal and mid inferior wall in both rest and stress images consistent with mild scar. EKG gated imaging showed LV EF at 62 %, rest and stress gated EF similar visually. T. I D. ratio was 1.16. Lung heart ratio noted to be within normal limits 0.44. Lung/heart ratio noted to be at the upper limit of normal for a technetium agent. No significant extracardiac and abnormal radiotracer activities were noted. RV free wall uptake was noted to be WNL. IMPRESSION: Also refer to comments under nuclear interpretation. Also test results needs to be interpreted in the context of pretest probability. 1. No definitive areas of transient perfusion defect or ischemia noted. 2. Mild fixed perfusion defect noted in the basal and mid inferior wall, suggestive of prior evidence of myocardial infarction/scar. 3. EKG gated imaging shows left ventricular ejection fraction of approx. 62 %. Lung/heart ratio is at the upper limit of normal 4. Clinical correlation requested as worse disease and or balanced ischemia could be missed. In approximately 10% of the cases Lexiscan may not cause adequate vasodilatory stress. Consider this in this patient since there was not much significant change in heart rate with pharmacologic stress agent. RECOMMENDATIONS: Aggressive risk factor modification and medical management. Further evaluation may be needed if continued symptoms or other high risk indicators are noted on clinical evaluation. May consider stress echo clinically indicated. Close cardiology follow-up is also recommended. Clinical correlation with echocardiogram derived ejection fraction. Inability to exercise by itself can lead to increased cardiovascular event risks. Consider cardiology consultation and or follow-up if clinically indicated. I am available for cardiology evaluation and consultation if requested by the rn document improvement, unless patient already has a master craftsman. Dr. Dori Saldivar. [facility] Board certified in cardiology and sleep medicine. Board certified in nuclear cardiology, adult echocardiography. LAM
--- NOTE | 2018-11-11 15:40 | WOMENS IMAGING REPORT ---
EXAM DESCRIPTION: BILAT SCREENING MAMMO W/CAD COMPLETED DATE/TIME: 11/11/2018 1:22 pm REASON FOR STUDY: Z12.31 BILATERAL SCREENING FOR MALIGNANT NEOPLASM IN [id number] CHEST PAIN, UNSP [id number] ENCNTR SCREEN MAMMOGRAM FOR MALIGNANT NEOPLASM OF SANCHEZ COMPARISON: 05/16/2015 and 04/27/2014. EXAM PARAMETERS: Standard craniocaudal and mediolateral oblique views of each breast recorded using digital acquisition. Read with the assistance of CAD. .[facility] - [employer] Version 9.2 LIMITATIONS: None. FINDINGS: RIGHT BREAST MASSES: No suspicious masses. CALCIFICATIONS: No new or suspicious calcifications. ARCHITECTURAL DISTORTION: None. DEVELOPING DENSITY: Possible developing density in the central breast with adjacent architectural dis tortion, visualized on the CC image, located 7 cm from the nipple. ASYMMETRY: None noted. OTHER: No other significant findings. LEFT BREAST MASSES: No suspicious masses. CALCIFICATIONS: No new or suspicious calcifications. ARCHITECTURAL DISTORTION: None. DEVELOPING DENSITY: None. ASYMMETRY: None noted. OTHER: No other significant findings. IMPRESSION: Possible developing density in the central right breast with adjacent architectural dist ortion. Stable mammographic appearance of the left breast. 0 Incomplete: Needs Additional Imaging Evaluation and/or prior Mammograms for Comparison. BREAST DENSITY: c. The breasts are heterogeneously dense, which may obscure small masses. BIRAD: ASSESSMENT: 0 Incomplete: Needs Additional Imaging Evaluation and/or prior Mammograms for C omparison. RECOMMENDATION: RECOMMENDED FOLLOW-UP: Recommend additional evaluation with breast tomosynthesis and /or compression views of the right breast and ultrasound of the right breast. Recommend routine scre ening mammography of the left breast. The patient will be contacted for additional imaging. COMMENT: The patient has been notified of the results by letter per [place] requirements. Additional no tification policies are in place for contacting patient with suspicious or incomplete findings. Quality ID #225: The [employer] recommends an annual screening mammogram for women aged 40 years or over. This facility utilizes a reminder system to ensure that all patients receive reminder letters, and/or direct phone calls for appointments. This includes reminders for routine scr eening mammograms, diagnostic mammograms, or other Breast Imaging Interventions when appropriate. Th is patient will be placed in the appropriate reminder system. TECHNICAL DOCUMENTATION: FINDING NUMBER: (1) ASSESSMENT: (1) JOB ID: [id number] [employer]- All Rights Reserved Reading location - IP/workstation name: [email or web address]
== END ==
LOC: RAD 07:39
PROVIDERS: ATTEND Physician Assistant
DX: Z12.31 Encounter for screening mammogram for malignant neoplasm of breast (principal); R07.9 Chest pain, unspecified
CPT/HCPCS: 93017; 78452; 77067; A9500; J2785; J0280; Q9969

== ENCOUNTER → 2018-11-23 | Outpatient (CLI) | payer OTHER ==
--- NOTE | 2018-11-23 10:27 | WOMENS IMAGING REPORT ---
EXAM DESCRIPTION: RIGHT DIAGNOSTIC MAMMO W/CAD COMPLETED DATE/TIME: 11/23/2018 10:14 am REASON FOR STUDY: R92.2 INCONCLUSIVE MAMMOGRAM R92.2 INCONCLUSIVE MAMMOGRAM COMPARISON: Digital bilateral screening mammograms dated 11/11/2018, 05/16/2015 and 04/27/2014. EXAM PARAMETERS: Standard craniocaudal and mediolateral oblique images of the breast recorded with d igital acquisition. Read with the assistance of CAD. .[facility] - [employer] Version 9.2 LIMITATIONS: None. FINDINGS: BREAST LATERALITY: RIGHT MASSES: No suspicious masses. CALCIFICATIONS: No new or suspicious calcifications. ARCHITECTURAL DISTORTION: None. DEVELOPING DENSITY: The previously demonstrated questionable developing density in the central breas t represents normal glandular tissue on the spot compression and additional views. ASYMMETRY: None noted. OTHER: No other significant findings. IMPRESSION: 1. No mammographic evidence of malignancy. BREAST DENSITY: c. The breast is heterogeneously dense, which may obscure small masses. BIRAD: ASSESSMENT: 2 Benign findings. RECOMMENDATION: 1. Routine screening mammogram. COMMUNICATION:The negative/benign results were communicated to the patient. COMMENT: The patient has been notified of the results by letter per MQSA requirements. Additional no tification policies are in place for contacting patient with suspicious or incomplete findings. Quality ID #225: The [employer] recommends an annual screening mammogram for women aged 40 years or over. This facility utilizes a reminder system to ensure that all patients receive reminder letters, and/or direct phone calls for appointments. This includes reminders for routine scr eening mammograms, diagnostic mammograms, or other Breast Imaging Interventions when appropriate. Th is patient will be placed in the appropriate reminder system. TECHNICAL DOCUMENTATION: FINDING NUMBER: (1) ASSESSMENT: (1) JOB ID: [id number] [employer]- All Rights Reserved Reading location - IP/workstation name: [email or web address]
== END ==
LOC: WI 09:52
PROVIDERS: ATTEND Physician Assistant
DX: R92.2 Inconclusive mammogram (principal)

== ENCOUNTER → 2020-01-13 | Outpatient (CLI) | payer MEDICARE ==
--- NOTE | 2020-01-13 13:02 | WOMENS IMAGING REPORT ---
EXAM DESCRIPTION: 3D SCREENING MAMMO BILAT IMAGES COMPLETED DATE/TIME: 01/13/2020 11:44 am REASON FOR STUDY: Z12.31 ENCNTR SCREEN MAMMOGRAM FOR MALIGNANT NEOPLASM OF BREAST Z12.31 ENCNTR SCR EEN MAMMOGRAM FOR MALIGNANT NEOPLASM OF YOVANY Z78.0 ASYMPTOMATIC MENOPAUSAL STATE history of left yovany ast cancer status post lumpectomy. COMPARISON: 11/11/2018, 05/16/2015, 04/27/2014, 06/15/2013 EXAM PARAMETERS: Standard craniocaudal and mediolateral oblique views of each breast recorded using digital acquisition and breast tomosynthesis. Read with the assistance of CAD. .[facility] - [employer] Patient Navigator Version 9.2 LIMITATIONS: None. FINDINGS: Findings present which are benign by mammographic criteria. No suspicious masses, calcific ations or architectural distortion. Pertinent benign findings: Benign calcifications in both breasts, stable from prior. Postoperative c hanges in the left breast are stable. Benign mammographic findings may include one or more of the following: Smooth masses, popcorn/rim/coa rse calcifications, asymmetries, post-procedure changes, and lesions with long-standing stability. IMPRESSION: BENIGN MAMMOGRAPHIC FINDINGS. BIRADS 2 BREAST DENSITY: c. The breasts are heterogeneously dense, which may obscure small masses. BIRAD: ASSESSMENT: 2 BENIGN FINDING(S) RECOMMENDATION: ROUTINE SCREENING COMMENT: The patient has been notified of the results by letter per MQSA requirements. Additional no tification policies are in place for contacting patient with suspicious or incomplete findings. Quality ID #225: The [employer] recommends an annual screening mammogram for women aged 40 years or over. This facility utilizes a reminder system to ensure that all patients receive reminder letters, and/or direct phone calls for appointments. This includes reminders for routine scr eening mammograms, diagnostic mammograms, or other Breast Imaging Interventions when appropriate. Th is patient will be placed in the appropriate reminder system. TECHNICAL DOCUMENTATION: FINDING NUMBER: (1) ASSESSMENT: (1) JOB ID: [id number] [address]- All Rights Reserved Reading location - IP/workstation name: [email or web address]
--- NOTE | 2020-01-13 13:42 | WOMENS IMAGING REPORT ---
EXAM DESCRIPTION: BONE DENSITY HIP/SPINE IMAGES COMPLETED DATE/TIME: 01/13/2020 12:44 pm REASON FOR STUDY: Z78.0 ASYMPTOMATIC MENOPAUSAL STATE Z12.31 ENCNTR SCREEN MAMMOGRAM FOR MALIGNANT NEOPLASM OF SANCHEZ Z78.0 ASYMPTOMATIC MENOPAUSAL STATE COMPARISON: 06/15/2013 TECHNIQUE: Dual-Energy X-ray Absorptiometry (DEXA) of the AP Spine and Hip. LIMITATIONS: None. FINDINGS: LUMBAR SPINE: The bone mineral density (BMD) measured from L1-L4 in the AP projection correlates with a T-score of 1.3, which is normal as defined by the World Health Organization. Findings likely falsely elevated s econdary to endplate degenerative change. BMD Change vs Baseline: -11.8%. BMD change from previous: -9.1% HIP: The bone mineral density (BMD) measured in the left hip correlates with a T-score of 0.8, which is no rmal as defined by the World Health Organization. BMD Change vs Baseline: -8.1%. BMD change from previous -9.8%. 10 year Fracture Risk Assessment: Major Osteoporotic Fracture: Not available. Hip Fracture: Not available. IMPRESSION: 1. LUMBAR SPINE WHO CLASSIFICATION: NORMAL. 2. HIP WHO CLASSIFICATION: NORMAL. OVERALL ASSESSMENT: WHO CLASSIFICATION: NORMAL. COMMENT: The World Health Organization defines low BMD as follows: T-score: Normal: At or above -1.0 Osteopenia: Between -1.0 and -2.5 Osteoporosis: At or below -2.5 without fractures Established osteoporosis: At or below -2.5 with fractures In general, you may wish to consider: Diagnosis Treatment Follow-up DEXA Normal BMD Prevention 2-3 years Osteopenia Prevention/Therapy 1-2 years Osteoporosis Therapy Yearly TECHNICAL DOCUMENTATION: JOB ID: [id number] [employer]- All Rights Reserved Reading location - IP/workstation name: [email or web address]
== END ==
LOC: WI 11:17
PROVIDERS: ATTEND Physician Assistant
DX: Z12.31 Encounter for screening mammogram for malignant neoplasm of breast (principal); Z78.0 Asymptomatic menopausal state
CPT/HCPCS: 77063; 77067; 77080